=== PATIENT | male | born 1970 | race Caucasian/White ===

== ENCOUNTER 2020-08-21 12:36 | Emergency (ER) | payer OTHER ==
[~2020-08-21 12:36] MED LIST: ASPIR 8181 MG PO; ASPIRIN CHEWABL81 MG PO; BYSTOLIC5 MG PO; CEFDINIR300 MG PO; CLARITIN10 M2 PO; CRESTOR20 MG PO; EFFIENT10 MG PO; FLUTICASONE PRO16 GM; FLUZONE QU60 MCG/015 IM; LEVOTHYROXINE25 MCG PO; LORATADINE10 MG PO; MONTELUKAST SOD10 MG PO; NITROSTAT0.4 MG SL; NORVASC 5 MG TAB5 MG PO; OMEPRAZOLE20 M1 PO; PRILOSEC OTC20 MG PO; RANEXA500 MG PO
[2020-08-21 15:01] LABS: BUN/CREATININE RATIO 19 (0-10)
[2020-08-21 15:09] LABS: HEMOGLOBIN 14.6 gm/dl (14.0-17.5); RED BLOOD COUNT 5.13 M/UL (4.20-5.50); WHITE BLOOD COUNT 7.2 K/UL (4.5-11.0)
[2020-08-21] MEDS ORDERED: PROTONIX40 MG PO (16:28)
[2020-12-18] MEDS ORDERED: FISH OIL 1,0001 EACH PO (07:31)
[2020-12-18] MEDS ORDERED: BYSTOLIC5 MG PO (07:33)
== END 2020-08-21 17:29 | disposition home or self-care (01) ==
LOC: ER1 12:36
PROVIDERS: Emergency Medicine
DX: R07.89 Other chest pain (principal); R11.0 Nausea; I10 Essential (primary) hypertension; I25.10 Atherosclerotic heart disease of native coronary artery without angina pectoris; E11.9 Type 2 diabetes mellitus without complications; Z88.8 Allergy status to other drugs, medicaments and biological substances; Z20.822 Contact with and (suspected) exposure to COVID-19
CPT/HCPCS: 71045; 80053; 82550; 82553; 83690; 83874; 83880; 84484; 85025; 86140; 93005; 96374; 96375; 99285; C9113; J2405; J7030; U0002

== ENCOUNTER → 2020-09-30 | Outpatient (CLI) | payer OTHER ==
[~2020-09-30] MED LIST changes: +CLARITIN-D 121 EACH PO; +FISH OIL 1,0001 EACH PO; +PEPCID20 MG PO; +PROTONIX40 MG PO; +XYZAL5 MG PO
== END ==
LOC: KOH-I 13:53
DX: J32.9 Chronic sinusitis, unspecified (principal); J34.89 Other specified disorders of nose and nasal sinuses
CPT/HCPCS: 70486

== ENCOUNTER 2020-12-18 08:25 | Observation (INO) | payer OTHER ==
[~2020-12-18] VITALS: Ht 182.9 cm; Wt 89.4 kg
[~2020-12-18 08:25] MED LIST changes: -CLARITIN-D 121 EACH PO; -PEPCID20 MG PO; -XYZAL5 MG PO
[2020-12-18 09:10] LABS: HEMOGLOBIN 15.6 gm/dl (14.0-17.5); RED BLOOD COUNT 5.12 M/UL (4.20-5.50); WHITE BLOOD COUNT 6.7 K/UL (4.5-11.0)
[2020-12-18 09:38] LABS: BUN/CREATININE RATIO 19 (0-10)
[2020-12-18] MEDS ORDERED: XYZAL5 MG PO (12:06)
[2020-12-18] MEDS ORDERED: CLARITIN-D 121 EACH PO (12:07)
[2020-12-18] MEDS ORDERED: PEPCID20 MG PO (12:07)
== END 2020-12-18 18:40 | disposition home or self-care (01) ==
LOC: ER1 08:25 → CDU 10:49 → MED SURG 4 11:40
PROVIDERS: Emergency Medicine; ADMIT Internal Medicine
DX: R07.89 Other chest pain (principal); I25.10 Atherosclerotic heart disease of native coronary artery without angina pectoris; I10 Essential (primary) hypertension; E78.5 Hyperlipidemia, unspecified; K21.9 Gastro-esophageal reflux disease without esophagitis; E03.9 Hypothyroidism, unspecified; F17.220 Nicotine dependence, chewing tobacco, uncomplicated; Z20.822 Contact with and (suspected) exposure to COVID-19; Z95.5 Presence of coronary angioplasty implant and graft; Z88.8 Allergy status to other drugs, medicaments and biological substances; Z79.82 Long term (current) use of aspirin; Z79.899 Other long term (current) drug therapy
CPT/HCPCS: 36415; 71045; 80053; 82550; 82553; 83874; 84484; 85025; 93005; 99285; G0378; U0002

== ENCOUNTER → 2021-10-26 | Outpatient (CLI) | payer OTHER ==
[~2021-10-26] MED LIST changes: +CLARITIN-D 121 EACH PO; +PEPCID20 MG PO; +XYZAL5 MG PO
== END ==
LOC: HEART 5 07:52
DX: I25.119 Atherosclerotic heart disease of native coronary artery with unspecified angina pectoris (principal); I10 Essential (primary) hypertension; R07.9 Chest pain, unspecified; R42 Dizziness and giddiness; R00.2 Palpitations; R06.02 Shortness of breath
CPT/HCPCS: 78452; A9502; J2785

== ENCOUNTER 2021-12-26 23:20 | Emergency (ER) | payer OTHER ==
[2021-12-27 01:40] LABS: HEMOGLOBIN 14.3 gm/dl (14.0-17.5); RED BLOOD COUNT 4.74 M/UL (4.20-5.50); WHITE BLOOD COUNT 7.5 K/UL (4.5-11.0)
[2021-12-27 01:58] LABS: BUN/CREATININE RATIO 12 (0-10)
== END 2021-12-27 05:25 | disposition home or self-care (01) ==
LOC: ER1 23:20
PROVIDERS: Family Medicine
DX: R53.1 Weakness (principal); E78.5 Hyperlipidemia, unspecified; I10 Essential (primary) hypertension; Z95.5 Presence of coronary angioplasty implant and graft; Z88.8 Allergy status to other drugs, medicaments and biological substances; Z20.822 Contact with and (suspected) exposure to COVID-19
CPT/HCPCS: 0240U; 80053; 81001; 82550; 82553; 84439; 84443; 84484; 85025; 85610; 93005; 99285; J7030